=== PATIENT | female | born 1935 | race Caucasian/White ===

== ENCOUNTER → 2022-04-30 12:41 | Outpatient (CLI) | payer MEDICARE, OTHER, SELFPAY ==
--- NOTE | 2022-04-30 12:42 | DI.MRI.S_ITS ---
PROCEDURE: MR LUMBAR SPINE WO CON INDICATIONS: Low back pain, unspecified TECHNIQUE: Noncontrast sagittal T1 spin echo and T2 fast echo, sagittal STIR, and T2 fast spin echo through the lumbar spine. In cases with scoliosis, additional coronal T2 fast spin echo may be performed. COMPARISON: [facility], MR, L-SPINE WITHOUT CONTRAST, 11/12/2015, 16:19. [facility], MR, MR LUMBAR SPINE WO CON, 12/08/2017, 13:16. [facility], CR, XR LUMBAR SPINE 2 OR 3 VIEWS, 11/18/2017, 16:58. [facility], MR, L-SPINE WITHOUT CONTRAST, 08/12/2017, 13:44. FINDINGS: Image quality: This examination is limited by involuntary motion artifact. Alignment and Curvature: There is normal bony alignment. Bone Marrow: Marrow is of normal overall signal. No acute vertebral body compression fractures. Numerous levels of chronic compression deformities are seen. Previously placed vertebroplasty cement can be seen at T10, T11, L1, L2, and L4. Spinal Cord: Conus medullaris terminates at the L1 level. Visualized cord demonstrates normal signal and size. Paraspinous Soft Tissues: No paravertebral masses. At least a right renal cyst can be seen. T12-L1: The disc height is well-preserved. Loss of disc signal is seen at this level. Mild generalized disc bulge is seen. Moderate bilateral neural foraminal narrowing is seen. No central canal narrowing is seen. When comparison is made with the prior images, these findings are similar. L1-L2: The disc height and disc signal are relatively well preserved. Mild generalized disc bulge is seen. Mild facet joint hypertrophy is seen. Mild to moderate bilateral neural foraminal narrowing can be seen. No central canal narrowing is seen. L2-L3: No significant abnormality is seen. L3-L4: The disc height is well-preserved. Loss of disc signal is seen at this level. Moderate generalized disc bulge is seen. Moderate facet joint hypertrophy is seen. There is [id number] left-sided and no significant right-sided neural foraminal narrowing. Moderate central canal narrowing is seen. These imaging findings have progressed compared to the prior study. L4-L5: The disc height is well-preserved. Loss of disc signal is seen at this level. Moderate generalized disc bulge is seen. Moderate facet joint hypertrophy is seen. At least moderate bilateral neural foraminal narrowing can be seen. Moderate central canal narrowing is seen. No significant change from the prior. L5-S1: The disc height is well-preserved. Loss of disc signal is seen at this level. Mild to moderate disc bulge is seen. Moderate facet joint hypertrophy is seen. Mild to moderate bilateral neural narrowing can be seen. No significant central canal narrowing is seen. When comparison is made with the prior images, these findings are similar. IMPRESSION: Multiple levels of degenerative change are seen, which are similar to the prior 2018 MRI. Multiple levels of chronic compression deformity are seen, with multiple levels of previously placed vertebroplasty cement. Dictated by: Fabrice Avila M.D. on 04/30/2022 at 13:58 Approved by: Fabrice Avila M.D. on 04/30/2022 at 14:06
== END ==
PROVIDERS: PCP Family Medicine; Referring Provider Orthopaedic Surgery Sports Medicine; Visit Provider Orthopaedic Surgery Sports Medicine
DX: M47.817 Spondylosis without myelopathy or radiculopathy, lumbosacral region (principal); M47.816 Spondylosis without myelopathy or radiculopathy, lumbar region; M16.11 Unilateral primary osteoarthritis, right hip; M54.50 Low back pain, unspecified
CPT/HCPCS: 72148

== ENCOUNTER → 2022-12-20 11:59 | Outpatient (CLI) | payer MEDICARE, OTHER, SELFPAY ==
--- NOTE | 2022-12-20 12:01 | DI.RAD.S_ITS ---
PROCEDURE: XR LUMBAR SPINE MIN 4V INDICATIONS: low back pain TECHNIQUE: 5 views of the lumbar spine were acquired, including bilateral oblique views. COMPARISON: [facility], MR, MR LUMBAR SPINE WO CON, 04/30/2022, 13:24. [facility], CR, XR LUMBAR SPINE 2 OR 3 VIEWS, 11/18/2017, 16:58. FINDINGS: Bones: 5 nonrib-bearing vertebrae are present. There is slightly exaggerated lumbar lordosis and trace retrolisthesis L1 on two. There is diffuse demineralization. Vertebroplasty cement is present in L1, L2, L4, and partially seen in T11. There is a chronic moderate T12 compression fracture without kyphoplasty cement. No significant change in vertebral body heights in the lumbar spine compared to prior studies. No suspicious bony lesions. Soft tissues: Overlying bowel gas pattern is normal. No suspicious soft tissue calcifications. Heavy atherosclerotic and costochondral calcification. Oblique images: No visible pars defects. Degenerative facet changes in the lower lumbar spine. IMPRESSION: 1. No evidence of interval vertebral body fracture or subluxation. 2. Osteopenia. 3. Vertebroplasty change. Dictated by: Lashanda Latif M.D. on 12/20/2022 at 14:48 Approved by: Lashanda Latif M.D. on 12/20/2022 at 14:52
== END ==
PROVIDERS: PCP Family Medicine; Referring Provider Anesthesiology; Visit Provider Anesthesiology
DX: M47.816 Spondylosis without myelopathy or radiculopathy, lumbar region (principal); M25.551 Pain in right hip; M16.0 Bilateral primary osteoarthritis of hip; M85.88 Other specified disorders of bone density and structure, other site; M54.50 Low back pain, unspecified
CPT/HCPCS: 72110; 99214

== ENCOUNTER 2023-02-02 12:18 | Outpatient (CLI) | payer MEDICARE, OTHER, SELFPAY ==
--- NOTE | 2023-02-02 12:19 | DI.RAD.S_ITS ---
PROCEDURE: PAIN PERIPHERAL NRV BLK OTHER INDICATIONS: CLUNEAL NEUROPATHY COMPARISON: None. FINDINGS: Fluoroscopic spot filming was performed to verify placement of spinal needles at the right crest level(s), as labeled on the films. Appropriate location(s) of the needle tip(s) was confirmed by injection of iodinated contrast. IMPRESSION: Fluoroscopic guidance Approved by: Sudhir Mix M.D. on 02/03/2023 at 9:12
[2023-02-02 12:44] VITALS: BP 114/61; PULSE 95; RESP 16; TEMP 36.7; O2SAT 98
[2023-02-02 12:55] VITALS: BP 139/66; PULSE 93; RESP 12; O2SAT 99
[2023-02-02] MEDS: IOPAMIDOL 15 ML VIAL 3 ML INJ (12:57)
[2023-02-02] MEDS: methylPREDNISolone acet DEPO 40 MG/ML VIAL INJ (12:57)
[2023-02-02] MEDS: BUPIVACAINE 0.5% (PF) 10 ML VIAL 5 ML INJ (12:58)
[2023-02-02 13:00] VITALS: BP 144/67; PULSE 92; RESP 11; O2SAT 97
[2023-02-02 13:12] VITALS: BP 125/87; PULSE 95; RESP 16; O2SAT 97
--- NOTE | 2023-02-02 13:12 | P.PCN_ITS ---
Date/Time/Diagnoses Date of procedure: 02/02/23 Time of procedure: 13:00 Procedure Notes Physician: Kai Woodard Total Fluoroscopy time (seconds): 8 Total sedation minutes: 0 Procedure in detail & Post-procedure care: Right Cluneal Nerve Injection Indications: Komal is presenting for treatment of cluneal neuralgia with low back and buttock pain. Preoperative diagnosis: Right cluneal neuralgia Postoperative diagnosis: Same Focused Examination: Ax3 Mood and affect are normal Vital Signs: VSS Consent: Following review of allergies and potential side effects/complications, including, but not necessarily limited to, infection, allergic reaction, local tissue breakdown, stroke, temporary or permanent nerve injury, paralysis, and possible , the patient indicated that they understood and agreed to proceed.? An informed consent document was signed by the patient, witnessed by a nurse and placed in the patient's chart.? Additionally, other treatment options including medications and physical therapy were reviewed with the patient. All questions were answered. Site was then marked. Anesthesia: Local Position: Prone Monitoring: NIBP, Pulse oximetry, 3 lead EKG Needle used: 25 gauge, 3.5 inch spinal needle x3 Contrast: Isovue 300-M 3mL Injectate: Depomedrol 40mg with 8 mL 0.5% Bupivacaine - 3 mL per site Technique: The skin was prepped with chloraprep and then draped in a sterile fashion. Time out was performed as per protocol. Oxygen applied via NC. Midline of the spine was identified using fluoroscopy. The skin was measured 8 cm from midline and sterile alisha placed on the skin delineating the superior aspect of the iliac crest on the right. Two solis were subsequently made 2 cm medial and 2 cm lateral for a total of 3 target sites. Skin and subcutaneous structures of the needle entry sites were then infiltrated with 5 mL of lidocaine 1%. Under AP and contralateral oblique control, the needle was guided to the superior aspect of the iliac crest in the 3 locations. Contrast was injected and the spread was consistent with appropriate needle location. There was no evidence for intravascular uptake. After negative aspiration, the above-mentioned injectate was then slowly administered and the needles withdrawn. The patient expressed no unusual discomfort or paresthesias during needle positioning or injection. Band- Aids applied to injection sites. EBL: less than 1 ml Complications: None Post Procedure: Patient was taken to the recovery and monitored. The patient was provided a Pain Log to continue to record the patient's response to the target- specific procedure prior to the patient's follow-up visit with the referring physician. Patient was stable upon discharge. Detailed post procedure instructions were provided. Patient was asked to call in the event of worsening pain, fever, weakness, numbness or bladder/bowel incontinence.
== END 2023-02-02 13:15 | disposition home or self-care (01) ==
LOC: RAD 12:19
PROVIDERS: PCP Family Medicine; Referring Provider Anesthesiology; Visit Provider Anesthesiology
DX: G58.8 Other specified mononeuropathies (principal)
CPT/HCPCS: 64450; J1030

== ENCOUNTER → 2023-04-13 11:20 | Outpatient (CLI) | payer MEDICARE, OTHER, SELFPAY ==
--- NOTE | 2023-04-13 11:22 | DI.MRI.S_ITS ---
PROCEDURE: MR THORACIC SPINE WO CON INDICATIONS: Compression fractures TECHNIQUE: Noncontrast sagittal T1 spine echo and T2 fast spin echo, sagittal STIR, and T2 fast spin echo through the thoracic spine. COMPARISON: [facility], , T-SPINE WITHOUT CONTRAST, 10/24/2017, 14:14. FINDINGS: Image quality: Excellent. Alignment and Curvature: No spondylolisthesis. Bone Marrow: Multiple vertebral body compression deformity status post vertebroplasty involving the T9, T10, T11, L1 and L2 vertebral bodies. Mild compression deformity of the T12 vertebral body is stable. No acute vertebral body compression fractures. Spinal Cord: Visualized spinal cord is normal in size and signal. Paraspinous Soft Tissues: No paravertebral masses. Miscellaneous: There is severe neural foraminal narrowing on the right at T10-T11 and moderate to severe at T11-T12 and T12-L1. There is no central canal stenosis. IMPRESSION: 1. No acute vertebral body compression deformities. 2. Multiple vertebral body compression deformity status post vertebroplasty involving T9, T10, T11, L1 and L2 vertebral bodies. There is no associated edema to suggest acute etiology. Mild compression deformity of the T12 vertebral body without vertebroplasty is stable. 3. Neural foraminal narrowing on the right at T10 through L1 as described above. Other neural foramina appear patent. No central canal stenosis. Dictated by: Feroz Noriega M.D. on 04/13/2023 at 14:03 Approved by: Feroz Noriega M.D. on 04/13/2023 at 14:14
== END ==
PROVIDERS: PCP Family Medicine; Referring Provider Anesthesiology; Visit Provider Anesthesiology
DX: S22.000A Wedge compression fracture of unspecified thoracic vertebra, initial encounter for closed fracture (principal); M48.04 Spinal stenosis, thoracic region; M43.8X4 Other specified deforming dorsopathies, thoracic region
CPT/HCPCS: 72146

== ENCOUNTER 2024-02-15 08:49 | Outpatient (CLI) | payer MEDICARE, OTHER, SELFPAY ==
[2024-02-15 09:00] VITALS: BP 153/67; PULSE 68; RESP 16; TEMP 37.3; O2SAT 95
[2024-02-15 09:20] VITALS: BP 162/71; PULSE 75; RESP 16; O2SAT 98
[2024-02-15] MEDS: iopamidoL 15 ML VIAL 3 ML INJ (09:23)
[2024-02-15] MEDS: DEXAMETHASONE 10 MG/ML VIAL INJ (09:23)
[2024-02-15 09:25] VITALS: BP 148/56; PULSE 74; RESP 13; O2SAT 95
[2024-02-15 09:30] VITALS: BP 145/65; PULSE 70; RESP 15; O2SAT 98
--- NOTE | 2024-02-15 09:30 | P.PCN_ITS ---
Date/Time/Diagnoses Date of procedure: 02/15/24 Time of procedure: 09:30 Procedure Notes Physician: Kai Woodard Total Fluoroscopy time (seconds): 10 Total sedation minutes: 0 Procedure in detail & Post-procedure care: L4-5 Interlaminar Epidural Steroid Injection Indications: Komal is presenting for treatment of lumbar radiculopathy with low back and leg pain. Preoperative diagnosis: Lumbar radiculopathy Postoperative diagnosis: Same Focused Examination: Ax3 Mood and affect are normal Vital Signs: VSS Consent: Following review of allergies and potential side effects/complications, including, but not necessarily limited to, infection, allergic reaction, local tissue breakdown, stroke, temporary or permanent nerve injury, paralysis, and possible , the patient indicated that they understood and agreed to proceed.? An informed consent document was signed by the patient, witnessed by a nurse and placed in the patient's chart.? Additionally, other treatment options including medications and physical therapy were reviewed with the patient. All questions were answered. Site was then marked. Anesthesia: Local Position: Prone Monitoring: NIBP, Pulse oximetry, 3 lead EKG Needle used: 18 G 3.5? Tuohy Contrast: Isovue 300M Injectate: Dexamethasone 10 mg with 1% lidocaine 2 mL Technique: The skin was prepped with chloraprep and then draped in a sterile fashion. Time out was performed as per protocol. Oxygen applied via NC. Skin and subcutaneous structures of the needle entry site was then infiltrated with 3 mL of lidocaine 1%. Under AP, lateral and contralateral oblique fluoroscopic control, the Tuohy needle was guided into the L4-5 epidural space. The space was accessed with loss of resistance technique. Isovue 300M was then injected and the spread was consistent with the epidural space. There was no evidence for intravascular or intrathecal uptake. After negative aspiration, the above- mentioned injectate was then slowly administered and the needle withdrawn. The patient expressed no unusual discomfort or paresthesias during the injection. Band-Aids applied to injection sites. EBL: less than 1 ml Complications: None Post Procedure: Patient was taken to the recovery and monitored. The patient was provided a Pain Log to continue to record the patient's response to the target- specific procedure prior to the patient's follow-up visit with the referring physician. Patient was stable upon discharge. Detailed post procedure instructions were provided. Patient was asked to call in the event of worsening pain, fever, weakness, numbness or bladder or bowel incontinence.
--- NOTE | 2024-02-15 09:30 | DI.RAD.S_ITS ---
PROCEDURE: PAIN L INTERLAMINAR/CAUDAL INJ INDICATIONS: radiculopathy COMPARISON: None. FINDINGS: Fluoroscopic spot filming was performed to verify placement of spinal needles at the L4-L5 level(s), as labeled on the films. Appropriate location(s) of the needle tip(s) was confirmed by injection of iodinated contrast. Vertebroplasty material place. IMPRESSION: L4-5 injection. Please see operative note for full details. Dictated by: Dennis Lang M.D. on 02/15/2024 at 13:46 Approved by: Dennis Lang M.D. on 02/15/2024 at 13:46
== END 2024-02-15 09:40 | disposition home or self-care (01) ==
LOC: RAD 08:50
PROVIDERS: PCP Family Medicine; Referring Provider Anesthesiology; Visit Provider Anesthesiology
DX: M54.16 Radiculopathy, lumbar region (principal)
CPT/HCPCS: 62323; J1100

== ENCOUNTER → 2025-05-14 14:01 | Outpatient (CLI) | payer MEDICARE, OTHER, SELFPAY ==
--- NOTE | 2025-05-14 14:04 | DI.RAD.S_ITS ---
PROCEDURE: XR SACROILIAC JOINT MIN 3V INDICATIONS: SACROILIAC PAIN TECHNIQUE: 3 views of the sacroiliac joints were acquired. COMPARISON: None. FINDINGS: Bones: No bony erosions or ankylosis. No suspicious bony lesions. No fractures. 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 Soft tissues: Overlying bowel gas pattern is normal. No suspicious soft tissue densities. IMPRESSION: No radiographic evidence of sacroiliitis. Dictated by: Bo Abad M.D. on 05/14/2025 at 14:29 Approved by: Bo Abad M.D. on 05/14/2025 at 14:30
--- NOTE | 2025-05-14 14:04 | DI.RAD.S_ITS ---
PROCEDURE: XR LUMBAR SPINE MIN 4V INDICATIONS: BACK PAIN TECHNIQUE: 5 views of the lumbar spine were acquired, including bilateral oblique views. COMPARISON: [facility], , XR LUMBAR SPINE MIN 4V, 12/20/2022, 11:57. FINDINGS: Bones: 5 nonrib-bearing vertebrae are present. Stable compression deformity of T12. Kyphoplasty changes at L1, L2 and L4. Additional kyphoplasty of the lower thoracic spine. Mild to moderate, multilevel degenerative disc disease and lower lumbar facet arthrosis. Soft tissues: Overlying bowel gas pattern is normal. No suspicious soft tissue calcifications. Oblique images: No pars defects. IMPRESSION: No acute abnormality. Extensive kyphoplasty changes. Stable T12 compression deformity. Dictated by: Bo Abad M.D. on 05/14/2025 at 14:28 Approved by: Bo Abad M.D. on 05/14/2025 at 14:29
== END ==
PROVIDERS: PCP Family Medicine; Referring Provider Physical Medicine & Rehabilitation; Visit Provider Physical Medicine & Rehabilitation
DX: M47.26 Other spondylosis with radiculopathy, lumbar region (principal); M51.16 Intervertebral disc disorders with radiculopathy, lumbar region; M53.3 Sacrococcygeal disorders, not elsewhere classified; M16.0 Bilateral primary osteoarthritis of hip; M43.8X4 Other specified deforming dorsopathies, thoracic region
CPT/HCPCS: 72110; 72202